=== PATIENT | female | born 1990 | race Caucasian/White ===

== ENCOUNTER 2016-10-24 12:38 | Day surgery (SDC) | payer OTHER ==
[2016-10-20 09:55] LABS: HEMATOCRIT 41.9 % (36.0-47.0); HEMOGLOBIN 13.5 g/dL (12.0-15.5); HGB HCT DIFFERENCE -1.4; MEAN CORPUSCULAR HEMOGLOBIN 27.9 pg (27.0-33.4); MEAN CORPUSCULAR HGB CONC 32.1 g/dL (32.0-36.0); MEAN CORPUSCULAR VOLUME 87 fl (80-97); RED BLOOD COUNT 4.82 10^6/uL (3.72-5.28); RED CELL DISTRIBUTION WIDTH 12.9 % (11.5-14.0)
[~2016-10-24 12:38] MED LIST: BUPIVACAINE HCL 0.5 % INJ/PF 30 ML SDV ONE; CEFAZOLIN 2 GM/D5W RTU 2 GM/50 ML RTUPB IV PRN; DEXAMETHASONE SOD PHOSPHATE INJ 4 MG/1 ML VIAL ONE; KETOROLAC TROMETHAMINE 60 MG/2 ML SDV ONE; LACTATED RINGERS 1000 ML IV PRN; LIDOCAINE 0.5% INJ-PF (5 MG/ML) 50 ML SDV SUBCUT PRN; LIDOCAINE 2% INJ-PF (20 MG/ML) 10 ML AMPUL ONE; METOCLOPRAMIDE HCL INJ/PF 10 MG/2 ML SDV ONE; ONDANSETRON HCL INJ/PF 4 MG/2 ML SDV ONE; SUCCINYLCHOLINE CHLORIDE INJ 200 MG/10 ML VIAL ONE
[2016-10-24] MEDS ORDERED: FENTANYL CITRATE INJ/PF 250 MCG/5 ML AMPULE ONE (14:48)
[2016-10-24] MEDS ORDERED: PROPOFOL INJ 200 MG/20 ML VIAL IV ONE (14:49)
[2016-10-24] MEDS ORDERED: MIDAZOLAM 2 MG/2 ML INJ ONE (14:49)
[2016-10-24] MEDS ORDERED: EPHEDRINE SULFATE INJ 50 MG/1 ML AMPULE ONE (14:49)
[2016-10-24] MEDS ORDERED: DEXMEDETOMIDINE INJ 80 MCG/20 ML VIAL IV ONE (14:50)
[2016-10-24] MEDS ORDERED: ACETAMINOPHEN 100 ML IV ONE (14:50)
[2016-10-24] MEDS ORDERED: MEPERIDINE HCL/PF INJ 25 MG/1 ML DISP.SYRIN IV PRN (16:38)
[2016-10-24] MEDS ORDERED: DIPHENHYDRAMINE HCL 50 MG/ML VIAL IV PRN (16:38)
[2016-10-24] MEDS ORDERED: PROMETHAZINE HCL INJ 25 MG/1 ML VIAL IV PRN ×2 (16:38)
[2016-10-24] MEDS ORDERED: FENTANYL CITRATE INJ/PF 100 MCG/2 ML AMPUL IV PRN ×3 (16:38)
[2016-10-24] MEDS ORDERED: MORPHINE SULFATE 10 MG/ML INJ IV PRN (16:38)
--- NOTE | 2016-10-24 16:53 | PDOC DISCHARGE SUMMARY ---
Discharge Summary (SDC) - Discharge Final Diagnosis: S/P Left Wrist Arthroscopy Date of Surgery: 10/24/16 Discharge Date: 10/24/16 Condition: Good Treatment or Instructions: Schedule Follow Up w/ Dr. Sarbjit Petersen @ [facility] to be seen in 10-14 days or as scheduled [place]: [place]: [place]: Keep splint clean/dry/intact. Ice and elevate May begin finger range of motion attempting to make full fist. Stool softener of choice when on pain medication. Prescriptions: Oxycodone HCl/Acetaminophen [Percocet 5-325 mg Tablet] 1 - 2 tab PO ASDIR PRN # 45 tablet PRN Reason: Referrals: [Primary Care Provider] - Discharge Diet: As Tolerated Discharge Activity: No Lifting Over 10 Pounds, No Lifting/Push/Pulling Report the Following to Your Physician Immediately: Unusual Bleeding, Redness, Swelling, Warmth, Increased Soreness, Numbness, Tingling Sensation
--- NOTE | 2016-10-24 17:00 | Operative Report ---
Operative Report DATE OF SURGERY: 10/24/16 PREOPERATIVE DIAGNOSIS: Left Wrist Pain POSTOPERATIVE DIAGNOSIS: Radial Sided Degenerative TFCC Tear, Ulnocarpal Synovitis OPERATION: Left Wrist Arthroscopy w/ Debridement Radial Sided TFCC, Partial Synovectomy SURGEON: TIEN MILTON ANESTHESIA: GA COMPLICATIONS: None ESTIMATED BLOOD LOSS: Minimal PROCEDURE: Indication for above procedure: 25-year-old female who sustained a injury to her left wrist according to the patient after placement of an IV. She had attempted multiple conservative measures including multiple injections, therapy and anti-inflammatories along with activity modification without resolution of her symptoms. An MRI without contrast was done no significant internal derangement was appreciated. At that point she was sent to tx for further evaluation and treatment. We discussed treatment options including continued activity modification and conservative management versus operative intervention for arthroscopy of her left wrist. Risks and benefits of the operative procedure were explained to the patient, patient verbalized understanding consented for the procedure. Procedure In Detail: Patient was seen and evaluated in the preoperative holding area. The LEFT upper extremity was initialized and marked. Patient received 2g of Ancef IV for bacterial prophylaxis. Patient was taken back to the operative room where transferred to the operative table and placed under general anesthesia. Once they were adequately anesthetized a nonsterile tourniquet was placed on the upper extremity. A surgical team debriefing was performed ensuring all instrumentation was available, the surgical procedure was discussed with possible concerns reviewed. The upper extremity was prepped with chlorhexidine and alcohol and draped in a sterile fashion. A timeout was done identifying correct patient, procedure and extremity everyone in attendance agree with this and verbalized no concerns. The extremity was exsanguinated the tourniquet was inflated to 200 mmHg. Patient was placed in the [place] wrist tower. A 3-4 portal was established. Blunt dissection was performed with a hemostat down to the capsule and the capsule of the radiocarpal joint was entered. The arthroscope was entered into the radial carpal joint. Dry arthroscopy was performed which demonstrated some mild synovitis of the radiocarpal joint and ulnar carpal joints. Inflow was then begun and a 4-5 portal was established. Scapholunate, radioscaphocapitate, Short/Long radiolunate ligaments were identified without disruption. With the use of the probe the TFCC was probed. There was good ballottement of the TFCC there was mild fraying partial thickness fraying of the radial aspect of the TFCC but no full-thickness tear appreciated. I then introduced the full-radius resector and debridement the radial side of the TFCC. There was no evidence of chondral damage or degenerative changes. Partial synovectomy was performed at the ulnar humeral joint. The edges of the synovium were then coagulated with the Germain wand to a stable base. I then established a mid carpal radial portal the arthroscope was introduced into the midcarpal joint. Via triangulation a ulnar midcarpal portal was established. With the use of a probe the scapholunate and lunotriquetral articulations were probed there is no evidence of step-off or instability. The arthroscope was then placed in the ulnar midcarpal portal further inspection of the triquetrohamate articulation was done there was no evidence of degenerative changes mild synovitis was identified and thus a partial synovectomy was performed. I then removed the arthroscopic instruments. The skin was closed with interrupted 3-0 nylon suture. 10 mL of 0.5% Marcaine without epinephrine was injected for postoperative pain control. Wound was dressed with Xeroform 4 x 4's and a volar splint in the neutral position. The tourniquet was then deflated. Patient had normal capillary refill and skin turgor. Sponge counts, instrument counts, needle counts counts were correct. Patient was then awoken from anesthesia. Transferred from the operating room table to the operating room stretcher. There was no intraoperative complications patient tolerated procedure well stable to PACU. Postoperative plan: Patient will follow-up in 2 weeks at which point she may begin mobilization to discontinue the use of the splint.
[2016-10-24] MEDS: FENTANYL CITRATE INJ/PF 100 MCG/2 ML AMPUL ONE ×2 (17:11→17:16)
[2016-10-24] MEDS ORDERED: ONDANSETRON HCL INJ/PF 4 MG/2 ML SDV ONE (17:46)
[2016-10-24] MEDS ORDERED: OXYCODONE-ACETAMINOPHEN 5-325 MG TABLET PO PRN (17:59)
[2016-10-24] MEDS ORDERED: PROMETHAZINE HCL INJ 25 MG/1 ML VIAL ONE (18:06)
[2016-10-24 19:00] VITALS: BP 110/58
== END 2016-10-24 19:00 | disposition home or self-care (01) ==
LOC: OROUT 12:38
PROVIDERS: ATTEND Orthopaedic Surgery
PROC: 0RBP4ZZ Excision of Left Wrist Joint, Percutaneous Endoscopic Approach (ICD-10-PCS; 2016-10-24)
PROC: 0RBP4ZZ Excision of Left Wrist Joint, Percutaneous Endoscopic Approach (ICD-10-PCS; principal; 2016-10-24 14:45)
DX: M24.132 Other articular cartilage disorders, left wrist (principal); M65.832 Other synovitis and tenosynovitis, left forearm
CPT/HCPCS: 36415; 85027; 81025; 29846; J2250; J1100; J1885; J3010 ×2; J2765; J2550; J0330; J2405; J2704; J3490 ×2; J0690; J0131; 1830